=== PATIENT | male | born 1990 | race Caucasian/White ===

== ENCOUNTER → 2020-07-29 11:20 | Outpatient (CLI) | payer BC, SELFPAY ==
--- NOTE | ~2020-07-29 | XR_ITS ---
XR cervical spine 4-5V DATE: 07/29/2020 11:42 INDICATION: Neck pain TECHNIQUE: Odontoid, open-mouth, AP, swimmer's and lateral views COMPARISON: None FINDINGS: There is reversal of cervical curvature. C1 and C2 are normally aligned and the odontoid process is intact. No fracture or dislocation or lock ed facet or prevertebral soft tissue swelling is detected. There is mild posterior spurring at C4-5 and prominent posterior spurring at C5-C6. There is moderate loss of interspace height at C3-4, C4-5 and C5-6. IMPRESSION: Reversal of cervical curvature Moderate degenerative changes of the mid to lower cervical spine Reviewed, dictated and finalized at location A. [facility]
== END ==
PROVIDERS: PCP Family Medicine; Visit Provider Family Medicine
DX: M47.812 Spondylosis without myelopathy or radiculopathy, cervical region (principal)
CPT/HCPCS: 72050

== ENCOUNTER 2020-08-12 06:56 | Outpatient (NON) | payer BC, SELFPAY ==
[2020-08-13 16:30] LABS: SARS-CoV-2 RNA PCR Negative
== END 2020-08-12 06:57 ==
LOC: ANHCOVIDDT 07:06
PROVIDERS: PCP Family Medicine; Visit Provider Family Medicine
DX: K52.9 Noninfective gastroenteritis and colitis, unspecified (principal); Z20.828 Contact with and (suspected) exposure to other viral communicable diseases
CPT/HCPCS: 87635; C9803; U0003

== ENCOUNTER → 2021-05-01 08:09 | Outpatient (CLI) | payer BC, SELFPAY ==
[2021-05-01 18:57] LABS: SARS-CoV-2 RNA PCR Negative
== END ==
PROVIDERS: PCP Family Medicine; Visit Provider Family Medicine
DX: J02.9 Acute pharyngitis, unspecified (principal); Z20.822 Contact with and (suspected) exposure to COVID-19
CPT/HCPCS: C9803; U0003; U0005